=== PATIENT | female | born 1990 | race American Indian/Alaskan Native ===

== ENCOUNTER 2018-05-01 19:11 | Outpatient (CLI) | payer MEDICAID ==
[2018-05-01 19:21] VITALS: BP 126/65
[2018-05-01] MEDS ORDERED: LACTATED RINGERS 500 ML IV ONE (21:00)
--- NOTE | 2018-05-01 22:53 | Ultrasound Report ---
FINAL REPORT PROCEDURE: Limited transvaginal pelvic ultrasound. TECHNIQUE: Transvaginal imaging was performed to determine the length of the cervix. HISTORY: History of delivery, . COMPARISON: No prior studies are available for comparison. FINDINGS: The cervix is closed and measures 4.8 centimeters in length. There are several nabothian cysts within the cervix. IMPRESSION: 4.8 centimeter long cervix.
--- NOTE | 2018-05-01 23:16 | Ultrasound Report ---
FINAL REPORT PROCEDURE: Limited obstetrical ultrasound. TECHNIQUE: Limited imaging was done to document viability and determine cervical length. HISTORY: , labor. COMPARISON: No prior studies are available for comparison. FINDINGS: Cardiac activity is documented at 157 beats per minute. The cervix measures approximately 5.3 centimeters in length. IMPRESSION: Viable . Cervix 5.3 centimeters in length with transabdominal imaging.
== END 2018-05-01 22:00 | disposition home or self-care (01) ==
LOC: TRG 19:11
PROVIDERS: ATTEND Obstetrics & Gynecology
DX: O46.92 Antepartum hemorrhage, unspecified, second trimester (principal); Z3A.24 24 weeks gestation of pregnancy; Z88.6 Allergy status to analgesic agent
CPT/HCPCS: 76815; 76817